=== PATIENT | female | born 1965 | race Caucasian/White ===

== ENCOUNTER 2022-07-25 08:38 | Outpatient (RCR) | payer OTHER, SELFPAY | END 2022-09-19 16:02 | disposition home or self-care (01) | LOC: ST 08:38 | DX: R47.01 Aphasia (principal); R41.841 Cognitive communication deficit; F02.80 Dementia in other diseases classified elsewhere, unspecified severity, without behavioral disturbance, psychotic disturbance, mood disturbance, and anxiety | CPT/HCPCS: 92507 ==

== ENCOUNTER 2022-09-18 10:51 | Outpatient (RCR) | payer OTHER, SELFPAY | END 2023-02-23 08:18 | disposition home or self-care (01) | LOC: OT 10:51 | DX: G31.89 Other specified degenerative diseases of nervous system (principal) | CPT/HCPCS: 97110; 97140; 97167; 97530; 97535 ==

== ENCOUNTER 2023-02-24 10:05 | Outpatient (RCR) | payer OTHER, SELFPAY | END 2023-04-03 16:46 | disposition home or self-care (01) | LOC: OT 10:05 | PROVIDERS: PCP Nurse Practitioner Family; Visit Provider Nurse Practitioner Family | DX: H54.7 Unspecified visual loss (principal); G31.89 Other specified degenerative diseases of nervous system | CPT/HCPCS: 97110; 97535 ==

== ENCOUNTER 2023-05-28 12:37 | Outpatient (RCR) | payer OTHER, SELFPAY | END 2023-11-20 13:10 | disposition home or self-care (01) | LOC: ST 12:37 | PROVIDERS: PCP Nurse Practitioner Family; Visit Provider Nurse Practitioner Family | DX: R47.01 Aphasia (principal); F02.80 Dementia in other diseases classified elsewhere, unspecified severity, without behavioral disturbance, psychotic disturbance, mood disturbance, and anxiety; R41.841 Cognitive communication deficit | CPT/HCPCS: 92507; 92523 ==

== ENCOUNTER 2023-10-01 09:26 | Outpatient (RCR) | payer OTHER, SELFPAY | END 2023-11-20 12:35 | disposition home or self-care (01) | LOC: OT 09:26 | PROVIDERS: PCP Nurse Practitioner Family; Visit Provider Nurse Practitioner Family | DX: F03.94 Unspecified dementia, unspecified severity, with anxiety (principal) | CPT/HCPCS: 97167; 97530 ==